=== PATIENT | female | born 1980 | race Caucasian/White ===

== ENCOUNTER 2019-11-13 08:00 | Day surgery (SDC) | payer OTHER ==
[~2019-11-13 08:00] MED LIST: DURICEF 500 MG CAPSULE PO; OXYC1TAB9 PO
== END 2019-11-13 14:30 | disposition home or self-care (01) ==
LOC: AMB-ENDOS 08:00
PROVIDERS: ATTEND Surgery
DX: K62.1 Rectal polyp (principal); Z12.11 Encounter for screening for malignant neoplasm of colon; Z20.828 Contact with and (suspected) exposure to other viral communicable diseases

== ENCOUNTER 2020-02-23 09:30 | Outpatient (CLI) | payer OTHER | END 2020-02-23 09:33 | disposition home or self-care (01) | LOC: PPH VACUNA 09:30 | DX: Z23 Encounter for immunization (principal) ==

== ENCOUNTER 2024-05-26 05:40 | Day surgery (SDC) | payer OTHER ==
[2024-05-15 14:07] VITALS: BP 133/90
[~2024-05-26] VITALS: Ht 162.6 cm; Wt 82.1 kg
[2024-05-26] MEDS ORDERED: BUPIVACAINE HCL/MPF 0.5% 30ML VIAL ONE (07:01)
[2024-05-26] MEDS ORDERED: LIDOCAINE HCL 1%/EPINEPHRINE 20ML VIAL IJ ONE ×2 (07:01→08:00)
[2024-05-26] MEDS ORDERED: HEMOSTATIC MATRIX 1 KIT KIT TOP ONE ×2 (07:01→08:00)
[2024-05-26] MEDS ORDERED: DIBUCAINE 30 GM TUBE ONE (07:01)
[2024-05-26] MEDS ORDERED: POVIDONE-IODINE 118 ML BOTT TOP ONE ×2 (07:01→08:00)
[2024-05-26] MEDS ORDERED: CEFTRIAXONE SODIUM 2,000 MG VIAL ONE (07:02)
[2024-05-26] MEDS ORDERED: METRONIDAZOLE/SODIUM CHLORIDE 500 MG/100 ML PIGGYBACK IV ONE ×2 (07:02→08:00)
[2024-05-26] MEDS ORDERED: BUPIVACAINE LIPOSOME/PF 266 MG/20 ML VIAL IJ ONE ×2 (07:31→08:00)
[2024-05-26] MEDS ORDERED: DIBUCAINE 30 GM TUBE RECTAL ONE (08:00)
[2024-05-26] MEDS ORDERED: CEFTRIAXONE SODIUM 2,000 MG VIAL IV ONE (08:00)
[2024-05-26] MEDS ORDERED: BUPIVACAINE HCL 30 ML VIAL IJ ONE (08:00)
[2024-05-26] MEDS ORDERED: ONDANSETRON HCL 2 MG/ML VIAL ONE (09:10)
[2024-05-26] MEDS ORDERED: INTESTINEX680 M1 PO (12:10)
[2024-05-26] MEDS ORDERED: CELECOXIB200 MG PO (12:10)
[2024-05-26] MEDS ORDERED: PERCOCET 5-3251 EACH PO (12:11)
[2024-05-26] MEDS ORDERED: NEURONTIN300 MG PO (12:11)
== END 2024-05-26 13:15 | disposition home or self-care (01) ==
LOC: CIR.AMB 05:40
PROVIDERS: ATTEND Surgery
DX: K64.2 Third degree hemorrhoids (principal); K64.4 Residual hemorrhoidal skin tags; K62.5 Hemorrhage of anus and rectum